=== PATIENT | female | born 1990 | race African-American/Black ===

== ENCOUNTER 2018-05-14 08:30 | Emergency (ER) | payer MEDICAID ==
[~2018-05-14] VITALS: Ht 152.4 cm; Wt 65.0 kg
[~2018-05-14 08:30] MED LIST: ALPR0.25 PO; ARIP20TA5 PO; DIAZ2TAB PO; ZOLP10TA PO
[2018-05-14 08:38] VITALS: BP 114/81
[2018-05-14] MEDS ORDERED: IBUPROFEN 200 MG TABLET ONE (09:15)
[2018-05-14] MEDS ORDERED: IBUPROFEN 200 MG TABLET PO ONE (09:30)
== END 2018-05-14 09:57 | disposition home or self-care (01) ==
LOC: ED 09:28
DX: H66.002 Acute suppurative otitis media without spontaneous rupture of ear drum, left ear (principal); F41.1 Generalized anxiety disorder; F32.9 Major depressive disorder, single episode, unspecified; G89.29 Other chronic pain
CPT/HCPCS: 99283

== ENCOUNTER 2018-05-23 04:51 | Emergency (ER) | payer MEDICAID ==
[~2018-05-23] VITALS: Ht 152.4 cm; Wt 66.0 kg
[2018-05-23 04:53] VITALS: BP 120/77
[2018-05-23] MEDS ORDERED: DEXAMETHASONE 4 MG/ML, 1ML ONE (05:12)
[2018-05-23] MEDS ORDERED: DEXAMETHASONE 4 MG/ML, 1ML PO ONE (05:30)
== END 2018-05-23 05:26 | disposition home or self-care (01) ==
LOC: ED 05:09
DX: H66.002 Acute suppurative otitis media without spontaneous rupture of ear drum, left ear (principal); F41.9 Anxiety disorder, unspecified; F32.9 Major depressive disorder, single episode, unspecified; Z87.440 Personal history of urinary (tract) infections; Z98.890 Other specified postprocedural states
CPT/HCPCS: 99283; J1100

== ENCOUNTER 2018-05-29 17:39 | Inpatient (IN) | payer MEDICAID ==
[~2018-05-29] VITALS: Ht 152.4 cm; Wt 64.0 kg
[2018-05-29 18:28] LABS: MEAN CORPUSCULAR HEMOGLOBIN 23.7 pg (27.0-34.8); MEAN CORPUSCULAR HGB CONC 32.7 g/dL (32.4-35.8); MEAN CORPUSCULAR VOLUME 72.5 fL (80-100); MEAN PLATELET VOLUME 8.5 fL (7.4-10.4); PLATELET COUNT 407 x10^3/uL (130-400); RED BLOOD COUNT 5.22 x10^6/uL (3.82-5.3); RED CELL DISTRIBUTION WIDTH 20.4 % (9.6-15.2)
[2018-05-29 18:37] LABS: ALANINE AMINOTRANSFERASE 20 U/L (12-78); ALBUMIN 3.9 g/dL (3.4-5.0); ANION GAP 11 mmol/L (5-15); CALCIUM 9.1 mg/dL (8.5-10.1); CHLORIDE 101 mmol/L (98-107); CREATININE 0.96 mg/dL (0.55-1.02)
[2018-05-29 18:39] LABS: ALKALINE PHOSPHATASE 122 U/L (45-117); BILIRUBIN,TOTAL 0.4 mg/dL (0.2-1.0); TOTAL PROTEIN 8.5 g/dL (6.4-8.2)
[2018-05-29 19:26] LABS: MD YES
[2018-05-29 19:29] LABS: LYMPH#(MANUAL) 2.32 x10^3/uL (1-3.4); LYMPHS% (MANUAL) 12 % (22-44); MONOS#(MANUAL) 1.16 x10^3/uL (0.3-2.7); MONOS% (MANUAL) 6 % (2-9); SEG#(MANUAL) 15.83 x10^3/uL (1.8-6.8); SEGS% (MANUAL) 82 % (42-75)
[2018-05-29 19:32] LABS: HYPOCHROMIA 2+; MICROCYTOSIS 2+; POLYCHROMASIA 1+
[2018-05-29 19:34] LABS: <PLATELET ESTIMATE> INCREASED; <PLT MORPHOLOGY> NORMAL PLT MORPH
[2018-05-29 19:49] LABS: MICROSCOPIC INDICATED
[2018-05-29 19:50] LABS: CULTURE INDICATED? YES
[2018-05-29 19:50] LABS: RAPID INFLUENZA A Negative (Negative); RAPID INFLUENZA B Negative (Negative)
[2018-05-29 20:48] LABS: CLOSTRIDIUM DIFFICILE ANTIGEN POSITIVE; CLOSTRIDIUM DIFFICILE TOXIN POSITIVE (Negative)
[2018-05-29] MEDS ORDERED: metroNIDAZOLE 500 MG TABLET ONE (21:23)
[2018-05-29] MEDS ORDERED: SODIUM CHLORIDE 0.9% 1,000ML IVBOLUS ONE (21:30)
[2018-05-29] MEDS ORDERED: metroNIDAZOLE 500 MG TABLET PO ONE (21:30)
[2018-05-29] MEDS ORDERED: ONDANSETRON 2MG/ML, 2ML IVPush PRN (22:30)
[2018-05-29] MEDS ORDERED: ONDANSETRON ODT 4 MG PO PRN (22:30)
[2018-05-29] MEDS ORDERED: hydrALAzine 20 MG/ML, 1ML IVPush PRN (22:30)
[2018-05-29] MEDS ORDERED: PROMETHAZINE 25 MG/ML, 1ML IM PRN (22:30)
[2018-05-29] MEDS ORDERED: morphine SULFATE 10 MG/ML, 1ML IVPush PRN (22:30)
[2018-05-29 22:34] VITALS: BP 103/71
[2018-05-29 23:15] LABS: FREE T4 (FREE THYROXINE) 1.27 ng/dL (0.76-1.46); THYROID STIMULATING HORMONE 0.862 mIU/L (0.358-3.740)
[2018-05-29] MEDS: NICOTINE 7 MG/24 HR PATCH.TD24 TD SCH (23:41)
[2018-05-29] MEDS: ACETAMINOPHEN 325 MG TABLET PO PRN (23:41)
[2018-05-29] MEDS: D5%-0.9% NACL+KCL 20MEQ 1,000 ML IV SCH (23:42)
[2018-05-29] MEDS: metroNIDAZOLE 500 MG TABLET PO SCH (23:42)
[2018-05-29] MEDS: VANCOMYCIN 50 MG/ML ORAL SUSP PO SCH (23:42)
[2018-05-29] MEDS: ZOLPIDEM 10MG TABLET PO SCH (23:42)
[2018-05-29] MEDS: ENOXAPARIN 40 MG/0.4 ML SQ SCH (23:43)
[2018-05-30] MEDS: DOXEPIN 10 MG CAPSULE PO SCH ×2 (00:22→20:29)
[2018-05-30 03:02] VITALS: BP 108/68
[2018-05-30 06:40] VITALS: BP 96/61
[2018-05-30] MEDS: VANCOMYCIN 50 MG/ML ORAL SUSP PO SCH ×4 (06:44→23:26)
[2018-05-30] MEDS: metroNIDAZOLE 500 MG TABLET PO SCH ×3 (06:44→23:26)
[2018-05-30] MEDS ORDERED: metroNIDAZOLE 500 MG TABLET PO ONE (09:30)
[2018-05-30 09:35] LABS: MEAN CORPUSCULAR HEMOGLOBIN 24.2 pg (27.0-34.8); MEAN CORPUSCULAR VOLUME 73.3 fL (80-100); MEAN PLATELET VOLUME 8.4 fL (7.4-10.4); PLATELET COUNT 359 x10^3/uL (130-400); RED BLOOD COUNT 4.39 x10^6/uL (3.82-5.3); RED CELL DISTRIBUTION WIDTH 20.5 % (9.6-15.2)
[2018-05-30 09:40] LABS: CHLORIDE 109 mmol/L (98-107)
[2018-05-30] MEDS: ARIPIPRAZOLE 10 MG TABLET PO SCH (09:44)
[2018-05-30] MEDS: D5%-0.9% NACL+KCL 20MEQ 1,000 ML IV SCH (09:44)
[2018-05-30 09:52] LABS: ALANINE AMINOTRANSFERASE 15 U/L (12-78); ALBUMIN 3.1 g/dL (3.4-5.0); ALKALINE PHOSPHATASE 88 U/L (45-117); ANION GAP 10 mmol/L (5-15); BASOPHILS # (AUTO) 0.05 x10^3/uL (0-0.1); BASOPHILS % (AUTO) 0 % (0-1); BILIRUBIN,TOTAL 0.3 mg/dL (0.2-1.0); CALCIUM 8.3 mg/dL (8.5-10.1); CHOL/HDL RATIO 3.4; CHOLESTEROL, TOTAL 132 mg/dL (140-239); CREATININE 0.68 mg/dL (0.55-1.02); EOSINOPHILS # (AUTO) 0.28 x10^3/uL (0-0.4); EOSINOPHILS % (AUTO) 2 % (1-7); HDL CHOL % 30 % (28-40); HDL CHOLESTEROL (DIRECT) 39 mg/dL (40-60); HEMOGRAM NOTE RECHECKED; LDL CHOLESTEROL,CALCULATED 80 mg/dL (54-169); LDL/HDL RATIO 2.1 (0.5-3.0); LYMPHOCYTES # (AUTO) 1.39 x10^3/uL (1-3.4); LYMPHOCYTES % (AUTO) 9 % (22-44); MD SCAN; MONOCYTES # (AUTO) 1.56 x10^3/uL (0.2-0.8); MONOCYTES % (AUTO) 11 % (2-9); NEUTROPHILS # (AUTO) 11.55 x10^3/uL (1.8-6.8); NEUTROPHILS % (AUTO) 78 % (42-75); TOTAL PROTEIN 6.8 g/dL (6.4-8.2); TRIGLYCERIDES 67 mg/dL (50-200); VLDL CHOLESTEROL 13 mg/dL (0-25)
[2018-05-30] MEDS ORDERED: POTASSIUM CHLORIDE 20 MEQ TAB.ER.PRT PO ONE (10:30)
[2018-05-30 11:59] VITALS: BP 98/66
[2018-05-30 12:00] VITALS: BP 98/66
[2018-05-30 18:33] VITALS: BP 104/71
[2018-05-30] MEDS: ACETAMINOPHEN 325 MG TABLET PO PRN (20:29)
[2018-05-30] MEDS: NICOTINE 7 MG/24 HR PATCH.TD24 TD SCH (20:29)
[2018-05-30] MEDS: ZOLPIDEM 10MG TABLET PO SCH (22:27)
[2018-05-30] MEDS: ENOXAPARIN 40 MG/0.4 ML SQ SCH (22:28)
[2018-05-31 00:43] VITALS: BP 100/68
[2018-05-31] MEDS: VANCOMYCIN 50 MG/ML ORAL SUSP PO SCH ×2 (06:38→12:45)
[2018-05-31] MEDS: ARIPIPRAZOLE 10 MG TABLET PO SCH (07:49)
[2018-05-31] MEDS: metroNIDAZOLE 500 MG TABLET PO SCH (07:49)
[2018-05-31 09:23] VITALS: BP 108/59
[2018-05-31] MEDS ORDERED: METR500T PO (12:17)
[2018-05-31] MEDS ORDERED: VANC1VIA3 PO (12:17)
== END 2018-05-31 13:29 | disposition home or self-care (01) | DRG 872 ==
LOC: ED 19:11 → EDIP 21:06 → 4NOR 22:18
PROVIDERS: ADMIT Internal Medicine; ATTEND Internal Medicine
DX: A41.9 Sepsis, unspecified organism (principal); A04.72 Enterocolitis due to Clostridium difficile, not specified as recurrent; E87.1 Hypo-osmolality and hyponatremia; A59.9 Trichomoniasis, unspecified; E86.0 Dehydration; F17.210 Nicotine dependence, cigarettes, uncomplicated; F31.9 Bipolar disorder, unspecified; F41.1 Generalized anxiety disorder; F51.04 Psychophysiologic insomnia; H66.92 Otitis media, unspecified, left ear; G89.29 Other chronic pain; Z87.440 Personal history of urinary (tract) infections; Z79.899 Other long term (current) drug therapy
CPT/HCPCS: 36415; 74022; 87400; 99285; J3370; 80053; 80061; 81001; 81025; 82728; 83036; 83540; 83550; 83735; 84100; 84439; 84443; 84466; 85025; 87040; 87086; 87324; 87491; 87591; 89055; 96360; G0378; J3480; J7030

== ENCOUNTER 2018-08-27 20:25 | Emergency (ER) | payer MEDICAID, OTHER ==
[~2018-08-27] VITALS: Ht 152.4 cm; Wt 63.0 kg
[~2018-08-27 20:25] MED LIST changes: +METR500T PO; +VANC1VIA3 PO
[2018-08-27 20:41] VITALS: BP 117/84
[2018-08-27] MEDS ORDERED: HYDROcodone/APAP 5/325 TABLET ONE (21:37)
[2018-08-27] MEDS ORDERED: HYDROcodone/APAP 5/325 TABLET PO ONE (22:00)
== END 2018-08-27 22:00 | disposition home or self-care (01) ==
LOC: ED 21:54
DX: S62.001A Unspecified fracture of navicular [scaphoid] bone of right wrist, initial encounter for closed fracture (principal); F41.1 Generalized anxiety disorder; F32.9 Major depressive disorder, single episode, unspecified; X58.XXXA Exposure to other specified factors, initial encounter; Y93.89 Activity, other specified; Y92.69 Other specified industrial and construction area as the place of occurrence of the external cause; Y99.0 Civilian activity done for income or pay
CPT/HCPCS: 99283

== ENCOUNTER 2019-02-24 13:48 | Emergency (ER) | payer OTHER ==
[~2019-02-24] VITALS: Ht 152.4 cm; Wt 56.5 kg
[2019-02-24 13:50] VITALS: BP 109/61
[2019-02-24] MEDS ORDERED: DOXE10CA PO (13:57)
[2019-02-24] MEDS ORDERED: HYDROcodone/APAP 5/325 TABLET ONE (14:13)
[2019-02-24] MEDS ORDERED: IBUPROFEN 200 MG TABLET ONE (14:13)
[2019-02-24] MEDS ORDERED: IBUPROFEN 600 MG TABLET PO ONE (14:30)
[2019-02-24] MEDS ORDERED: HYDROcodone/APAP 5/325 TABLET PO ONE (14:30)
== END 2019-02-24 14:29 | disposition home or self-care (01) ==
LOC: ED 14:15
DX: K02.9 Dental caries, unspecified (principal); F32.9 Major depressive disorder, single episode, unspecified; F41.1 Generalized anxiety disorder
CPT/HCPCS: 99283

== ENCOUNTER 2020-01-28 23:02 | Emergency (ER) | payer OTHER ==
[~2020-01-28] VITALS: Ht 152.4 cm; Wt 68.6 kg
[~2020-01-28 23:02] MED LIST changes: +DOXE10CA PO
[2020-01-28 23:03] VITALS: BP 158/109
== END 2020-01-29 00:07 | disposition home or self-care (01) ==
LOC: ED 23:38
DX: M25.531 Pain in right wrist (principal); M79.641 Pain in right hand
CPT/HCPCS: 99284